=== PATIENT | female | born 1985 | race Caucasian/White ===

== ENCOUNTER 2025-04-16 13:00 | Outpatient (AMB) | payer MEDICAID, SELFPAY ==
[2025-04-16 14:09] VITALS: BMI 35.4
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
== END 2025-04-16 15:21 | disposition home or self-care (01) ==
LOC: HO.HNS 13:01
PROVIDERS: PCP Family Medicine; Visit Provider Neurological Surgery
DX: M46.1 Sacroiliitis, not elsewhere classified (principal)
CPT/HCPCS: 99204

== ENCOUNTER → 2025-04-16 13:00 | Outpatient (BNVA) | payer MEDICAID, SELFPAY | PROVIDERS: PCP Family Medicine; Visit Provider Neurological Surgery | DX: M46.1 Sacroiliitis, not elsewhere classified (principal); I10 Essential (primary) hypertension | CPT/HCPCS: 99202 ==

== ENCOUNTER 2025-05-15 08:49 | Day surgery (SDC) | payer MEDICAID, SELFPAY ==
[2025-05-12 15:31] VITALS: BMI 35.4
[2025-05-13 09:37] VITALS: BMI 35.4
--- NOTE | 2025-05-13 14:59 | HO.ANESPROP2 ---
Documented by User: Luba Mijares NP 05/13/25 14:59 HPI - Anesthesia Eval Consult details Narrative: 39yo F for Left Sacroiliac Joint Fusion PMFSH Active Problems Active Problems: All Active Problems Sacroiliitis, not elsewhere classified (Acute) Past Medical History Medical History Nail abnormalities Seasonal allergies Cervical dysplasia Atrophic kidney Chronic kidney infection Heartburn Meningitis Depression ADHD (attention deficit hyperactivity disorder) HTN (hypertension) Septic arthritis Surgical History Surgical History Hx of section Hx of lithotripsy Hx of bilateral salpingectomy History of loop electrical excision procedure (LEEP) Social History Social History Household Members: Spouse Are you a primary memory care program director to a significant other at home: No Do you presently have visiting nurse or other home services: No Patient Tobacco Use Status: Current everyday Tobacco user Tobacco use type: Cigarette Cigarettes Per Day: 4 Years Smoked: 19 Second Hand Smoke Exposure: No Use of substances other than those prescribed or required for medical reasons: No Have you been hit, kicked, punched, or otherwise hurt by someone within the past year? If so, by whom?: No Spiritual Healthcare Practices: no Episcopal Healthcare Practices: no Cultural Healthcare Practices: no Are you DNR?: No Advance Directives: No (states is HCP) Advance Directives Information Provided: No (as above noted) Advance Directives on File: No Patient : No FDLMP: 04/19/25 : No Poor oral hygiene: No Meds Allergies Allergy/AdvReac Type Severity Reaction Status Date / Time Latex, Natural Rubber Allergy Intermediate Rash Verified 05/13/25 09:10 Seasonal Allergies Allergy Intermediate chest Verified 05/13/25 09:34 congestion Home Medications ?Medication ?Instructions ?Recorded ?Confirmed ?Last Taken ?Type gabapentin 300 mg capsule 300 mg PO BID PRN Pain 04/16/25 05/13/25 Unknown History hydrochlorothiazide 25 mg tablet 25 mg PO DAILY 04/16/25 05/13/25 Unknown History lisinopril 20 mg tablet 20 mg PO DAILY 04/16/25 05/13/25 Unknown History trazodone 50 mg tablet 50 mg PO BEDTIME 04/16/25 05/13/25 Unknown History dextroamphetamine-amphetamine ER 1 cap PO QAM 05/12/25 05/13/25 Unknown History 15 mg 24hr capsule,extend release (Adderall XR) famotidine 20 mg tablet 20 mg PO BID PRN Heartburn 05/12/25 05/13/25 Unknown History albuterol sulfate 90 mcg/actuation 2 puff inhalation Q4-6H PRN 05/13/25 05/13/25 Unknown History aerosol inhaler (Ventolin HFA) Allergy Symptoms budesonide-formoterol HFA 160 2 puff inhalation Q12H PRN Allergy 05/13/25 05/13/25 Unknown History mcg-4.5 mcg/actuation aerosol Symptoms inhaler (Symbicort) cetirizine 10 mg tablet 10 mg PO DAILY 05/13/25 05/13/25 Unknown History propranolol 20 mg tablet 20 mg PO BID PRN Anxiety 05/13/25 05/13/25 Unknown History Exam Height,Weight and Vital Signs: Height 5 ft 4 in Weight 93.44 kg Assessment and Plan Assessment Anesthesia Assessment: Chart Reviewed Documented by User: Justin Bui MD 05/15/25 09:46 [facility] Past Medical History Medical History Nail abnormalities Seasonal allergies Cervical dysplasia Atrophic kidney Chronic kidney infection Heartburn Meningitis Depression ADHD (attention deficit hyperactivity disorder) HTN (hypertension) Septic arthritis Cognitive capacity: normal Functional capacity: independent ambulation Family History Family history of problems with anesthesia: No Surgical History Surgical History Hx of section Hx of lithotripsy Hx of bilateral salpingectomy History of loop electrical excision procedure (LEEP) History of Problems with Anesthesia: No Social History Social History Household Members: Spouse Are you a primary memory care program director to a significant other at home: No Do you presently have visiting nurse or other home services: No Patient Tobacco Use Status: Current everyday Tobacco user Tobacco use type: Cigarette Cigarettes Per Day: 4 Years Smoked: 19 Second Hand Smoke Exposure: No Use of substances other than those prescribed or required for medical reasons: No Have you been hit, kicked, punched, or otherwise hurt by someone within the past year? If so, by whom?: No Spiritual Healthcare Practices: no Episcopal Healthcare Practices: no Cultural Healthcare Practices: no Are you DNR?: No Advance Directives: No (states is HCP) Advance Directives Information Provided: No (as above noted) Advance Directives on File: No Patient : No FDLMP: 04/19/25 : No Poor oral hygiene: No Meds Allergies Allergy/AdvReac Type Severity Reaction Status Date / Time Latex, Natural Rubber Allergy Intermediate Rash Verified 05/13/25 09:10 Seasonal Allergies Allergy Intermediate chest Verified 05/13/25 09:34 congestion Home Medications ?Medication ?Instructions ?Recorded ?Confirmed ?Last Taken ?Type gabapentin 300 mg capsule 300 mg PO BID PRN Pain 04/16/25 05/13/25 Unknown History hydrochlorothiazide 25 mg tablet 25 mg PO DAILY 04/16/25 05/13/25 Unknown History lisinopril 20 mg tablet 20 mg PO DAILY 04/16/25 05/13/25 Unknown History trazodone 50 mg tablet 50 mg PO BEDTIME 04/16/25 05/13/25 Unknown History dextroamphetamine-amphetamine ER 1 cap PO QAM 05/12/25 05/13/25 Unknown History 15 mg 24hr capsule,extend release (Adderall XR) famotidine 20 mg tablet 20 mg PO BID PRN Heartburn 05/12/25 05/13/25 Unknown History albuterol sulfate 90 mcg/actuation 2 puff inhalation Q4-6H PRN 05/13/25 05/13/25 Unknown History aerosol inhaler (Ventolin HFA) Allergy Symptoms budesonide-formoterol HFA 160 2 puff inhalation Q12H PRN Allergy 05/13/25 05/13/25 Unknown History mcg-4.5 mcg/actuation aerosol Symptoms inhaler (Symbicort) cetirizine 10 mg tablet 10 mg PO DAILY 05/13/25 05/13/25 Unknown History propranolol 20 mg tablet 20 mg PO BID PRN Anxiety 05/13/25 05/13/25 Unknown History Exam Exam Date and Time: 05/13/2025 Airway Mallampati Class: II Loose/Missing/Broken Teeth: No Heart: rrr Lungs: cta Other: normal Assessment and Plan Final Anesthetic Review Family History of Problems with Anesthesia: No History of Problems with Anesthesia: No NPO: Yes ASA Class: II Final Preanesthetic Review: No Changes in Pt Med Stat, Meds/Allgs Chart Reviewed, Consent Obtained/Reviewed and Anes Risks/Benef Reviewed Patient Risk: Low Procedure Risk: Low Anesthetic Plan Anesthetic Plan: GA Disposition: Standard PACU
[2025-05-15] VITALS (10 sets, daily range): BP systolic 117–151; BP diastolic 56–87; PULSE 66–95; RESP 12–22; TEMP 36.5–37.1; O2SAT 97–100
--- NOTE | ~2025-05-15 | FL_ITS ---
EXAMINATION: XR FLUOROSCOPY WITH IMAGES CLINICAL INFORMATION: Left SI joint fusion COMPARISON: None available. TECHNIQUE: Fluoroscopy provided to: Dr. Stevens Fluoroscopy time: 45 seconds DAP: 14.626 Gycm2 Images: 2 FINDINGS: 2 fluoroscopic spot images obtained during left SI joint fusion. Please refer to the full operative report for details. FL/FL guidance in OR IMPRESSION: Fluoroscopic guidance. Electronically signed by: Edwin Way MD 05/15/2025 12:10 PM EDT
--- NOTE | 2025-05-15 07:04 | MHC.SHP ---
Pre-Procedural Eval Section A - 24 Hr Update-Section A only Date of Service: 05/15/25 Section B - Complete if H&P > 30 days Chief Complaint: Sacroiliitis, not elsewhere classified Allergies: Allergies Allergy/AdvReac Type Severity Reaction Status Date / Time Latex, Natural Rubber Allergy Intermediate Rash Verified 05/13/25 09:10 Seasonal Allergies Allergy Intermediate chest Verified 05/13/25 09:34 congestion Review of Systems Sugical H&P ROS: Negative: Constitution, Cardiovascular, Respiratory, Neurological, Psychiatric, Hem-Onc, Allergic/Immunologic, Gastrointestinal, Genitourinary, Musculoskeletal, Integumentary, Endocrine and Eyes/Ears/Nose/Throat Exam Surgical H&P Exam: Not Evaluated: HEENT, Not Evaluated: Heart, Not Evaluated: Lungs, Not Evaluated: Extremities, Not Evaluated: Abdomen, Not Evaluated: Skin and Not Evaluated: Neurological Exam Comment: The patient is awake, alert, no acute distress. Proposed surgical incision site is clean, dry, with no signs of recent trauma. Plan Diagnosis/Plan: Unchanged I have reviewed the history and physical and performed a pertinent physical examination on my patient. No changes have occurred unless specified. Plan remains the same, left SI joint fusion. Time Spent With Patient Time: Total time managing care of this patient today _8___ minutes.
[2025-05-15] MEDS: Lactated Ringers 1,000 ML 100 ML IVCONT (09:29)
--- NOTE | 2025-05-15 11:48 | P.DS_ITS ---
DS: Providers Provider Date of Service: 05/15/25 Date of discharge: 05/15/25 Primary care physician: Ewelina Nettles MD DS: Summary Time Attestation Discharge Coordination Time (in mins): 12 Quality: Safe Use of Opioids Does Pt have an Active Cancer Diagnosis on the Problem List?: No Quality: Stroke Does the patient have a stroke diagnosis?: No Physical Exam Vital Signs: Vital Signs: Last Vital Signs Temp 97.8 F 05/15/25 09:17 Pulse 82 05/15/25 09:17 Resp 14 05/15/25 09:17 BP 141/87 H 05/15/25 09:17 Pulse Ox 100 05/15/25 09:17 O2 Del Method Room Air 05/15/25 09:17 BMI result Body Mass Index 35.4 Discharge Plan Discharge Patient Disposition: Home, Self-Care Referrals: Ewelina Nettles MD [Primary Care Provider, [facility]] - 1 Week Discharge Medications: New oxycodone 5 mg tablet 5 mg PO Q6H PRN (Reason: pain) Qty: 20 0RF Rx Instructions: Partial Fill upon patient request. Continued famotidine 20 mg tablet 20 mg PO BID PRN (Reason: Heartburn) dextroamphetamine-amphetamine [Adderall XR] 15 mg capsule,extended release 24hr 1 cap PO QAM cetirizine 10 mg tablet 10 mg PO DAILY albuterol sulfate [Ventolin HFA] 90 mcg/actuation Hfa Aerosol Inhaler 2 puff INHALATION Q4-6H PRN (Reason: Allergy Symptoms) propranolol 20 mg tablet 20 mg PO BID PRN (Reason: Anxiety) budesonide-formoterol [Symbicort] 160-4.5 mcg/actuation Hfa Aerosol Inhaler 2 puff INHALATION Q12H PRN (Reason: Allergy Symptoms) trazodone 50 mg tablet 50 mg PO BEDTIME lisinopril 20 mg tablet 20 mg PO DAILY gabapentin 300 mg capsule 300 mg PO BID PRN (Reason: Pain) hydrochlorothiazide 25 mg tablet 25 mg PO DAILY Discharge Orders: Discharge Order (Routine); Ordered 05/15/25 Ordered By: Ko Naik Diet: Advance to usual diet Activity on Discharge: As tolerated Activity Restrictions/Additional Instructions: After your SI joint fusion surgery we ask you to observe the following restrictions/guidelines: Activity: It is normal to feel some discomfort as you increase your activity, but that will improve with time. We ask you avoid heavy lifting or acitivities that cause pain. As a general rule, 8lbs is a safe limit for lifting right after surgery. We ask you to stay off your left leg after surgery in order to help the SI joint fuse. Please use crutches or walker. You may return to driving when you are off narcotics (such as vicodin, oxycodone, dilaudid, etc), and you are back to normal functional capacity. If you have any concerns please check with office before driving. Return to work is specific to each patient and each surgery, so please speak with your doctor/PA at first follow up. Please bring paperwork such as FMLA at that time if you need it filled out. Follow up: Please call the office, , after surgery to arrange a 3 week follow up for wound check. Wound Care: Your wound was closed with glue, there are no sutures to remove. You may shower on post op day # 1. We ask that you do not let the water soak the wound. If it does get wet, just towel dry lightly. Please do not scrub your incision or place any type of chemical/ointment on the wound. No tub baths, pools or jacuzzis for one month. If you have any leaking or redness from your wound, or fevers, please call office Medications: We will give you a short supply of narcotics after surgery (usually one weeks worth). If you need more please call the office but do not use more than prescribed. You will need to give our office 48 hours notice if you need narcotics refilled and we do not fill narcotics on weekends or evenings. If you are on a narcotic, it is a good idea to take a stool softener such as colace or senna to avoid constipation If you take blood thinner such as aspirin, Plavix, Coumadin, Effient, Eliquis etc for conditions such as Afib, DVT, Pulmonary embolus, coronary disease, stents etc please speak with your surgeon about specific details as to when you can resume these medications. You can resume NSAIDs on post op day 1 (eg: Motrin, Naproxen, etc). Print Language: Icelandic
--- NOTE | 2025-05-15 11:57 | P.OP_ITS ---
Operative Note Operative Note Date of Service: 05/15/25 Narrative: Preoperative diagnosis: Left Sacroiliitis Postoperative diagnosis: Same Operative procedure: Left sacroiliac joint fusion with 1 allograft implant Surgeon: Erick Stevens MD, PhD Shellfish Dredge Operator: KEAGAN Michael Anesthesia: General Description of procedure: The patient is suffering from left SI joint sacroiliitis refractory to nonoperative management. The patient has tried and failed all forms of conservative manage med except for an excellent short-term response to a sacroiliac joint injection. The sacroiliac joint was confirmed to be the pain generator after repeated pain blocks. The patient was offered surgical treatment with fixation and arthrodesis of the SI joint. The patient was brought to the operating room and endotracheally intubated. The patient was turned in a prone position on [place] spine table. Prepping and draping was done followed by a time-out. A C-arm was alternately positioned for lateral, oblique oblique and pelvic inlet and outlet projections througout the procedure. Skin markings were made for the anticipated position of the implant. A 2.5 cm longitudinal skin incision was made. A guide pin was inserted in an outlet oblique image for guidance follow-up insertion of dilator and working cannula. This was secured by placing an anchor pin into the ilium. Consideration was taken to cut channels utilizing a series of drills for decortication and internal fixation device placement. The implant was inserted such that it passed through the ilium, across the sacroiliac joint and into the sacrum, thus transfixing the sacroiliac joint. Proper positioning was confirmed on lateral fluoroscopy. The implant was packed with autologous bone collected from remain of the sacrum and ilium. Additional graft material was inserted into the channel void following the implant. The instruments were withdrawn. Upon completion, final images were obtained that showed a satisfactory position of the implant. Hemostasis was done. The incision was closed with an 0 Vicryl to fashion a 3-0 Vicryl subdermal layer after injecting Marcaine. Dermabond was used to approximate the surgeon. All sponge and needle counts were correct. Patient was extubated and transported in a stable condition to recovery room. Estimated blood loss: 40 Surgical time: 35 minutes Complications: None Disposition: Discharge to home
[2025-05-15] MEDS: oxyCODONE HCl Immed Release 5 MG TABLET PO (13:02)
== END 2025-05-15 13:48 | disposition home or self-care (01) ==
PROVIDERS: PCP Family Medicine; Visit Provider Neurological Surgery
PROC: (CPT 27279; principal; 2025-05-15 10:30)
DX: M46.1 Sacroiliitis, not elsewhere classified (principal); R26.2 Difficulty in walking, not elsewhere classified; I10 Essential (primary) hypertension; F90.9 Attention-deficit hyperactivity disorder, unspecified type; Z79.1 Long term (current) use of non-steroidal anti-inflammatories (NSAID); Z79.899 Other long term (current) drug therapy; Z91.040 Latex allergy status; F17.210 Nicotine dependence, cigarettes, uncomplicated
CPT/HCPCS: 27279; C1713; J0131; J0690; J1100; J1171; J1885; J2003; J2405; J2704; J3010; L8699

== ENCOUNTER → 2025-05-15 08:49 | Outpatient (BNV) | payer MEDICAID, SELFPAY | PROVIDERS: PCP Family Medicine; Visit Provider Physician Assistant | DX: M46.1 Sacroiliitis, not elsewhere classified (principal) | CPT/HCPCS: 27279; 99499 ==

== ENCOUNTER 2025-06-05 14:10 | Outpatient (AMB) | payer MEDICAID, SELFPAY ==
--- NOTE | 2025-06-05 14:18 | HO.SPINEOV ---
Intake Visit Reasons: 1st post op Intake Note: Ms. Grace is here today for her 1st post op. Advanced Manager Required: No Allergies Latex, Natural Rubber Allergy (Intermediate, Verified 05/13/25 09:10) Rash Seasonal Allergies Allergy (Intermediate, Verified 05/13/25 09:34) chest congestion Assessment & Plan Assessment & Plan (1) Sacroiliitis, not elsewhere classified: Code(s): M46.1 - Sacroiliitis, not elsewhere classified Category: Medical Plan Mrs Grace is 3 weeks out from her left SI joint fusion. The pain that she has presenting with before surgery is better, she is dealing with a postop surgical pain which seems to be getting better slowly. She is just taking [id number] medications with this. The her incision is healed up nicely. I told her at this point she can start walking in mobilizing more. I still do not want her doing heavy lifting but she can resume most activities. I will see her back in 6 weeks with a set of x-rays. Brown Stevens MD, PhD [facility] Orders: Orders XR sacroiliac joint min 3V Today M46.1 - Sacroiliitis, not elsewhere classified Coding Level of Care Code Global (74399) Diagnoses Sacroiliitis, not elsewhere classified M46.1
--- OUTSIDE RECORDS SUMMARY | 2025-06-05 14:55 | XMS_ITS | Encounter Summary ---
Author Organization [facility] Address [address] [place] [phone] Phone Care Team Providers Care Pastoral Ministries Professor Name Role Phone Ewelina Nettles MD Primary Care Provider [phone] Florence Ricks RIPPLER Unavailable [email or web address] Veena Wilson RN Unavailable Encounter Details Date Type Department Care Team (Late st Contact Info) Description 08/09/2024 Procedure Pass [facility] Endoscopy Admitting Dept Virtual Department [address] [place] [address] Social History Tobacco Use Types Packs/Day Years Used Date Smoking Tobacco: Every Day Cigarettes 0.5 19.7 Started: 10/09/2005 Passive Smoke Exposure: Current Smokeless Tobacco: Never Comments:Pt reports she is t rying to quit and is currently using the patch. Pt reports no hx of smokeless use. Alcohol Use Standard Drinks/Week Comments Never 0 (1 standard drink = 0.6 oz pure alcohol) Pt reports drinks a sip of alcohol once a year during holiday event. Education Answer Date Recorded Are you interested in more education? Not on marilyn e 02/03/2023 Are you concerned about learning? Not on file 02/03/2023 No 02/03/2023 No 02/03/2023 Digital Access Answer Date Recorded No 03/03/2023 No 03/03/2023 Reliable internet access at home? Not on file 03/03/2023 Device with a working camera? Not on file Intimate Partner Violence Answer Date R ecorded Are you denied basic needs s uch as food, clothing, or medical care? No 08/09/2024 In the past 12 months have y ou been in a relationship with a person who hurts, threatens, or tries to control you? No 08/09/2024 Are you denied basic needs s uch as food, clothing, or medical care? No 08/09/2024 In the past 12 months have y ou been in a relationship with a person who hurts, threatens, or tries to control you? No 08/09/2024 Education Answer Date Recorded What is the highest level of school you have completed or the highest degree you have received? Some college, no degree 11/01/2023 Comments No Sex and Gender Information Value Date Recorded Sex Assigned at Female 11/26/2020 6:11 PM EST Legal Sex Female 9:10 PM EDT Gender Identity Female 11/26/2020 6:11 PM EST Sexual Orientation Not on file Occupation Industry Job Start Date Job End Date not employed Not on file Not on file Not on file documented as of this encounter Plan of Treatment Not on file documented as of this encounter Visit Diagnoses Not on filedocumented in this encounter Additional Health Concerns Assessment Noted Time PHQ-9 Depression Total Score: 21 024 9:04 AM EST PHQ-2 Depression Total Score: 5 11/10/19 24 9:04 AM EST documented as of this encounter Care Teams [employer] Minist[employer] Professor Relationship Specialty Start Date End Date Ewelina Nettles MD [address] [place] [phone] [email or web address] PCP - General Family Medicine 11/26/20 Florence Ricks LCSW [address] [place] [id number] [employer] Social Work 10/24/23 Veena Wilson, RN [address] [place] [id number] [employer] Electronic Warfare Officer 12/02/24 02/09/25 documented as of this encounter Additional Source Comments The information contained in this document represents components of the legal health record. It is not the complete legal health record.[facility]
--- OUTSIDE RECORDS SUMMARY | 2025-06-05 14:55 | XMS_ITS | Encounter Summary ---
Author Organization [facility] Address [address] [place] [phone] Phone Care Team Providers Care Web Coordinator Name Role Phone Ewelina Nettles MD Primary Care Provider Ewelina Nettles MD Unavailable [phone] Florence RicksW Unavailable [email or web address] Stepan Reno Unavailable [email or web address] Mai Zuniga Unavailable claudia Veena Wilson RN Unavailable Encounter Details Date Type Department Care Team (Late st Contact Info) Description 06/15/2021 Telephone [facility] Emergency Radiology, [address], Floor 1 [place] [address] Ewelina Nettles MD [address] [place] [address] [email or web address] Social History Tobacco Use Types Packs/Day Years Used Date Smoking Tobacco: Some Days Smokeless Tobacco: Never Alcohol Use Standard Drinks/Week Comments Not Currently 0 (1 standard drink = 0.6 oz pur e alcohol) Comments No Sex and Gender Information Value Date Recorded Sex Assigned at Female 11/26/2020 6:11 PM EST Legal Sex Female 9:10 PM EDT Gender Identity Female 11/26/2020 6:11 PM EST Sexual Orientation Not on file documented as of this encounter Plan of Treatment Not on file documented as of this encounter Visit Diagnoses Not on filedocumented in this encounter Care Teams Web Coordinator Relationship Specialty Start Date End Date Ewelina Nettles MD [address] [place] [phone] [email or web address] PCP - General Family Medicine 11/26/20 Ewelina Nettles MD [address] [place] [address] [email or web address] Insurance Assigned Provider 01/16/21 06/17/23 Florence Ricks LCSW [address] [place] [address] [email or web address] [facility] Social Work 10/24/23 Stepan Reno [address] [place] [address] [email or web address] Community Health Worker 02/15/24 05/20/24 Mai Zuniga [address] [place] [address] [email or web address] [facility] Community Product Development Chemist 04/05/24 04/05/24 Veena Wilson RN [address] [place] [address] [email or web address] [facility] Mechanical Maintenance 12/02/24 02/09/25 documented as of this encounter Additional Source Comments The information contained in this document represents components of the legal health record. It is not the complete legal health record.[facility]
--- OUTSIDE RECORDS SUMMARY | 2025-06-05 14:55 | XMS_ITS | Encounter Summary ---
Author Organization [facility] Address [address] [place] [address] Phone Care Team Providers Care Kit Assembler Name Role Phone Ewelina Nettles MD Primary Care Provider [phone] Veena Wilson RN Unavailable Geovani Fermin MD Unavailable [phone] Ewelina Nettles MD Unavailable [phone] Florence RicksW Unavailable [email or web address] Stepan Reno Unavailable [email or web address] Mai Zuniga Unavailable claudia Veena Wilson RN Unavailable Encounter Details Date Type Department Care Team (Late st Contact Info) Description 12/01/2020 Procedure Pass [facility], Ct Scan - [address] [address] Social History Tobacco Use Types Packs/Day Years [...] on filedocumented in this encounter Care Teams Kit Assembler Relationship Specialty Start Date End Date Ewelina Nettles MD [address] [place] [address] [email or web address] PCP - General Family Medicine 11/26/20 Veena Wilson, RN [address] [place] [phone] [facility] Anthropology Lecturer 12/09/20 12/15/20 Geovani Fermin MD [address] [place] [phone] Insurance Assigned Provider 12/12/20 01/16/21 Ewelina Nettles MD [address] [place] [address] [email or web address] Insurance Assigned Provider 01/16/21 06/17/23 Florence Ricks LCSW [address] [place] [phone] [email or web address] [facility] Social Work 10/24/23 Stepan Reno [address] [place] [phone] [email or web address] [facility] Community Health Worker 02/15/24 05/20/24 Mai Zungia [address] [place] [address] [email or web address] [facility] Community Retail Banker 04/05/24 04/05/24 Veena Wilson, ENRIQUE [address] [place] [phone] [facility] Anthropology Lecturer 12/02/24 02/09/25 documented as of this encounter Additional Source Comments The information contained in this document represents components of the legal health record. It is not the complete legal health record.[facility]
--- OUTSIDE RECORDS SUMMARY | 2025-06-05 14:55 | XMS_ITS | Encounter Summary ---
Author Organization [facility] Address [address] [place] [address] Phone Care Team Providers Care Reclamation Furnace Operator Name Role Phone Ewelina Nettles MD Primary Care Provider [phone] Veena Wilson RN Unavailable Geovani Fermin MD Unavailable [phone] Ewelina Nettles MD Unavailable [phone] Florence RicksW Unavailable ndelabar Stepan Reno Unavailable Mai Zuniga Unavailable claudia Veena Wilson RN Unavailable Encounter Details Date Type Department Care Team (Late st Contact Info) Description 11/30/2020 Procedure Pass [facility] Cardiovascular And Interventional Radiology [address] [place] [address] Social History Tobacco Use Types Packs/Day Years [...] on filedocumented in this encounter Care Teams Reclamation Furnace Operator Relationship Specialty Start Date End Date Ewelina Nettles MD [address] [place] [address] [email or web address] PCP - General Family Medicine 11/26/20 Veena Wilson, RN [address] [place] [address] [facility] Semiconductor Wafers Etch Operator 12/09/20 12/15/20 Geovani Fermin MD [address] [place] [address] Insurance Assigned Provider 12/12/20 01/16/21 Ewelina Nettles MD [address] [place] [address] Insurance Assigned Provider 01/16/21 06/17/23 Florence Ricks LCSW [address] [place] [address] [email or web address] [facility] Social Work 10/24/23 Stepan Reno [address] [place] [address] [email or web address] [facility] Community Health Worker 02/15/24 05/20/24 Mai Zuniga [address] [place] [phone] [email or web address] [facility] Community Real Estate Underwriter 04/05/24 04/05/24 Veena Wilson, ENRIQUE [address] [place] [address] [facility] [employer]iconductor Wafers Etch Operator 12/02/24 02/09/25 documented as of this encounter Additional Source Comments The information contained in this document represents components of the legal health record. It is not the complete legal health record.[facility]
--- OUTSIDE RECORDS SUMMARY | 2025-06-05 14:55 | XMS_ITS | Encounter Summary ---
Author Organization [facility] Address [address] [place] [address] Phone Care Team Providers Care Tone Regulator Name Role Phone Ewelina Nettles MD Primary Care Provider [phone] Veena Wilson RN Unavailable Geovani Fermin MD Unavailable [phone] Ewelina Nettles MD Unavailable [phone] Florence RicksW Unavailable ndelabar Stepan Reno Unavailable Mai Zuniga Unavailable claudia Veena Wilson RN Unavailable Encounter Details Date Type Department Care Team (Late st Contact Info) Description 11/27/2020 Procedure Pass [facility], [address] [address] Social History Tobacco Use Types Packs/Day Years Used Date Smoking Tobacco: Never Assessed Alcohol Use Standard Drinks/Week Comments Not Currently 0 (1 standard drink = 0.6 oz pur e alcohol) Comments Unknown Sex and Gender Information Value Date Recorded Sex Assigned at Female 11/26/2020 6:11 PM EST Legal Sex Female 9:10 PM EDT Gender Identity Female 11/26/2020 6:11 PM EST Sexual Orientation Not on file documented as of this encounter Functional Status * Calculated C-SSRS Risk Score (Lifetime/Recent) Answer Date of Assessment Author No Risk Indicated 11/28/2020 6:29 PM Kerri Irby RN * [place] Suicide Severity Rating Scale (Screener/Recent Self-Report) Question Answer Date of Assessment Author 1. Wish to be (Past 1 Month) No 021 6:29 PM Kerri Irby RN 2. Non-Specific Active Suici viki Thoughts (Past 1 Month) No 11/28/2020 6:29 PM Kerri Irby RN 6. Suicidal Behavior (Lifetime) No 6:29 PM Kerri Irby RN documented as of this encounter Plan of Treatment Not on file documented as of this encounter Visit Diagnoses Not on filedocumented in this encounter Care Teams Tone Regulator Relationship Specialty Start Date End Date Ewelina Nettles MD [address] [place] [phone] [email or web address] PCP - General Family Medicine 11/26/20 Veena Wilson RN [address] [place] [phone] [facility] Railroad Auditor 12/09/20 12/15/20 Geovani Fermin MD [address] [place] [phone] Insurance Assigned Provider 12/12/20 01/16/21 Ewelina Nettles MD [address] [place] [phone] Insurance Assigned Provider 01/16/21 06/17/23 Florence Ricks LCSW [address] [place] [address] [facility] Social Work 10/24/23 Stepan Reno [address] [place] [address] [email or web address] [facility] Community Health Worker 02/15/24 05/20/24 Mai Zuniga [address] [place] [address] [email or web address] [facility] Community Medicare Specialist 04/05/24 04/05/24 Veena Wilson RN [address] [place] [address] [employer] Railroad Auditor 12/02/24 02/09/25 documented as of this encounter Additional Source Comments The information contained in this document represents components of the legal health record. It is not the complete legal health record.[facility]
--- OUTSIDE RECORDS SUMMARY | 2025-06-05 14:55 | XMS_ITS | Encounter Summary ---
Author Organization [facility] Address [address] [place] [address] Phone Care Team Providers Care Umbrella Cutter Name Role Phone Ewelina Nettles MD Primary Care Provider [phone] Veena Wilson RN Unavailable Geovani Fermin MD Unavailable [phone] Ewelina Nettles MD Unavailable [phone] Florence RicksW Unavailable ndelabar Stepan Reno Unavailable [email or web address] Mai Zuniga Unavailable claudia Veena Wilson RN Unavailable Encounter Details Date Type Department Care Team (Late st Contact Info) Description 12/01/2020 Procedure Pass [facility] Cardiovascular And Interventional Radiology [address] [place] [address] Social History Tobacco Use Types Packs/Day Years [...] on filedocumented in this encounter Care Teams Umbrella Cutter Relationship Specialty Start Date End Date Ewelina Nettles MD [address] [place] [address] [email or web address] PCP - General Family Medicine 11/26/20 Veena Wilson, RN [address] [place] [phone] [facility] Cart Pusher 12/09/20 12/15/20 Geovani Fermin MD [address] [place] [phone] Insurance Assigned Provider 12/12/20 01/16/21 Ewelina Nettles MD [address] [place] [phone] Insurance Assigned Provider 01/16/21 06/17/23 Florence Ricks LCSW [address] [place] [address] [email or web address] [facility] Social Work 10/24/23 Stepan Reno [address] [place] [address] [email or web address] [facility] Community Health Worker 02/15/24 05/20/24 Mai Zuniga [address] [place] [address] [email or web address] [facility] Community Assistant Media Planner 04/05/24 04/05/24 Veena Wilson, ENRIQUE [address] [place] [address] [facility] Cart Pusher 12/02/24 02/09/25 documented as of this encounter Additional Source Comments The information contained in this document represents components of the legal health record. It is not the complete legal health record.[facility]
--- OUTSIDE RECORDS SUMMARY | 2025-06-05 14:55 | XMS_ITS | Encounter Summary ---
Author Organization [facility] Address [address] [place] [address] Phone Care Team Providers Care Director Radio News Name Role Phone Ewelina Nettles MD Primary Care Provider [phone] Veena Wilson RN Unavailable Geovani Fermin MD Unavailable [phone] Ewelina Nettles MD Unavailable [phone] Florence RicksW Unavailable ndelabar Stepan Reno Unavailable [email or web address] Mai Zuniga Unavailable claudia Veena Wilson RN Unavailable Encounter Details Date Type Department Care Team (Late st Contact Info) Description 11/28/2020 Procedure Pass [facility], [address] [address] Social History Tobacco Use Types Packs/Day Years [...] 11/28/2020 6:29 PM Kerri Irby RN * [place] Suicide Severity Rating Scale (Screener/Recent Self-Report) Question [...] on filedocumented in this encounter Care Teams Director Radio News Relationship Specialty Start Date End Date Ewelina Nettles MD [address] [place] [phone] [email or web address] PCP - General Family Medicine 11/26/20 Veena Wilson RN [address] [place] [phone] [facility] Ladle Builder 12/09/20 12/15/20 Geovani Fermin MD [address] [place] [phone] Insurance Assigned Provider 12/12/20 01/16/21 Ewelina Nettles MD [address] [place] [phone] Insurance Assigned Provider 01/16/21 06/17/23 Florence Ricks LCSW [address] [place] [phone] [facility] Social Work 10/24/23 Stepan Reno [address] [place] [phone] [email or web address] .[email or web address] Community Health Worker 02/15/24 05/20/24 Mai Zuniga [address] [place] [address] [email or web address] [facility] Community Box Printer 04/05/24 04/05/24 Veena Wilson RN [address] [place] [address] [email or web address] [facility] Ladle Builder 12/02/24 02/09/25 documented as of this encounter Additional Source Comments The information contained in this document represents components of the legal health record. It is not the complete legal health record.[facility]
--- OUTSIDE RECORDS SUMMARY | 2025-06-05 14:55 | XMS_ITS | Encounter Summary ---
Author Organization [facility] Address [address] [place] [address] Phone Care Team Providers Care Lean Manager Name Role Phone Ewelina Nettles MD Primary Care Provider [phone] Veena Wilson RN Unavailable Geovani Fermin MD Unavailable [phone] Ewelina Nettles MD Unavailable [phone] Florence RicksW Unavailable ndelabar Stepan Reno Unavailable [email or web address] Mai Zuniga Unavailable claudia Veena Wilson RN Unavailable Encounter Details Date Type Department Care Team (Late st Contact Info) Description 11/28/2020 Procedure Pass [facility], Ct Scan - [address] [address] Social History Tobacco Use Types Packs/Day Years [...] 11/28/2020 6:29 PM Kerri Irby RN * [place] Suicide Severity Rating Scale (Screener/Recent Self-Report) Question Answer Date of Assessment Author 1. Wish to be (Past 1 Month) No 021 6:29 PM Kerri Irby, ENRIQUE 2. Non-Specific Active Suici viki Thoughts (Past 1 Month) No 11/28/2020 6:29 PM Kerri Irby RN 6. Suicidal Behavior (Lifetime) No 6:29 PM Kerri Irby RN documented as of this encounter Plan of Treatment Not on file documented as of this encounter Visit Diagnoses Not on filedocumented in this encounter Care Teams Lean Manager Relationship Specialty Start Date End Date Ewelina Nettles MD [address] [place] [phone] PCP - General Family Medicine 11/26/20 Veena Wilson RN [address] [place] [phone] [facility] Worm Picker 12/09/20 12/15/20 Geovani Fermin MD [address] [place] [phone] Insurance Assigned Provider 12/12/20 01/16/21 Ewelina Nettles MD [address] [place] [phone] Insurance Assigned Provider 01/16/21 06/17/23 Florence Ricks LCSW [address] [place] [phone] [facility] Social Work 10/24/23 Stepan Reno [address] [place] [phone] [email or web address] [employer] Community Health Worker 02/15/24 05/20/24 Mai Zuniga [address] [place] [address] [email or web address] [facility] Community Makeup Editor 04/05/24 04/05/24 Veena Wilson RN [address] [place] [phone] [facility] Worm Picker 12/02/24 02/09/25 documented as of this encounter Additional Source Comments The information contained in this document represents components of the legal health record. It is not the complete legal health record.[facility]
--- OUTSIDE RECORDS SUMMARY | 2025-06-05 14:55 | XMS_ITS | Clinical Summary ---
Author Organization [facility] Address [address] [place] [address] Phone Care Team Providers Care River Driver Name Role Phone Ewelina Nettles MD Primary Care Provider Florence Ricks COMPUTER FORENSICS EXAMINER Unavailable [email or web address] Allergies Active Allergy Reactions Criticality Noted Date Comments Latex 11/26/2020 Medications ibuprofen (ADVIL,MOTRIN) 600 MG tablet Take 1 tablet (600 mg total) by mouth every 6 (six) hours as needed for pain (specific location in comments). 16 tablet 1 Active dextroamphetami ne-amphetamine (ADDERALL) 10 mg Tab tablet Take 10 mg by mouth every morning. Active metoclopramide HCl (REGLAN) 10 MG tablet Take 15 mg by mouth 3 (three) times a day. Active acetaminophen (TYLENOL) 325 mg tablet Take 2 tablets (650 mg total) by mouth every 6 (six) hours as needed for mild pain or fever. 30 tablet 1 Active senna (SENOKOT) 8.6 mg tablet Take 1 tablet by mouth 2 (two) times a day. 60 tablet 1 Active polyethylene glycol (MIRALAX) 17 gram packet Take 17 g by mouth daily. 30 packet 1 Active tamsulosin (FLOMAX) 0.4 mg CapIndications: Atrophic kidney,Pyelonep hritis,Bladder outlet obstruction,Acu te urinary retention Take 1 capsule (0.4 mg total) by mouth daily. 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 4 Active lisinopril (PRINIVIL,ZESTR IL) 20 MG tablet Take 20 mg by mouth daily. 4 Active traZODone (DESYREL) 50 MG tablet Take 50 mg by mouth nightly at bedtime. 4 Active Active Problems Patient Care Coordination No te Formatting of this note migh t be different from the original. Patient is high risk for these reasons: Multiple chronic conditions. Living Situation: Independent, lives with partner and four children in [address] 3 bedroom duplex. Functional Status (ADL's/iADLs): Many needs, including laundry, cleaning, and grocery shopping, due to chronic pain, Family/Social Supports: Some supports, including partner, mother, friends, and counselor. Goals of Care (HCP/Molst): None on file; Pt would like to complete HCP. Community Supports (e.g. VNA, DME Vendors, Elder Services): [facility] Transportation: Drives, needs help finding funds for car repairs. Medication Management System/Specialized Pharmacy Needs: Local pharmacy, self- picking tech. Financial Concerns: Experiencing financial hardship. Other Supports and Care Needs: Food, housing, WIC, educational, utilities. Problem Noted Date Diagnosed Date Bladder outlet obstruction 08/17/2021 Atrophic kidney 06/16/2021 Pyelonephritis 06/16/2021 Pyuria 06/16/2021 Yeast vaginitis 12/06/2020 Assessment & Plan (12/06/2020 5:24 PM EST): - diflucan x1 since she does not want topical treatment - will interact with opiates but she has not had significant sedation and will be continued on continuous pulse ox and will hold oxycodone dose if develops sedation E coli bacteremia 11/29/2020 Assessment & Plan (12/07/2020 3:16 PM EST): E. coli bacteremia- ecoli in urine Also appears to have SI septic arthritis, osteomyelitis iliac bone, and pyomyositis -Discussed with Dr. Cleary, good penetration to the bone with Levofloxacin, so will plan for 750mg Levofloxacin daily on discharge, first dose tonight. Anticipating prolonged course, at least 4-6 weeks? Follow-up with Dr. Cleary as an outpatient on December 15. Pyomyositis 11/28/2020 Assessment & Plan (12/07/2020 3:13 PM EST): Of left piriformis muscle, iliacus at the sacroiliac joint - New MRI Sacrum on 12/04 - appears there is osteomyelitis and SI septic arthritis, reviewed with surgery and IR at [facility] on 12/05 - felt IR drainage would be the indicated treatment but collection too small to drain - pain control challenging: Narcotic requirements will be a slow wean likely as an outpatient, attempts made to discuss with PCP today for transfer to OP plan Have discussed that it is not possible to fully reduce the pain she has with movement - she is finding benefit from the current dose of oxycodone Started long acting oxycodone today No sedation, pain is reasonably well controlled, discussing plan for outpatient taper over next few weeks of antibiotic therapy. Continue acetaminophen, gabapentin, lidocaine Tachycardia 11/28/2020 Acute urinary retention 11/28/2020 Assessment & Plan (12/07/2020 3:15 PM EST): Voiding appropriately Encounters Date Type Department Care Team Description 05/12/2025 Patient Outreach [facility] [address] [place] [phone] Florence Ricks LCSW iCMP Care Plan Update 04/22/2025 Patient Outreach [facility] [address] [place] [phone] Florence Ricks LCSW iCMP Care Plan Update 03/24/2025 Patient Outreach [facility] [address] [place] [phone] Florence Ricks LCSW iCMP Care Plan Update 03/21/2025 Patient Outreach [facility] [address] [place] [phone] Florence Ricks LCSW iCMP Care Plan Update 03/14/2025 Patient Outreach [facility] [address] [place] [phone] Florence Ricks, COMPUTER FORENSICS EXAMINER iCMP Care Plan Update from Last 3 Months Immunizations Immunization Administration Dates Next Due COVID-19 (Pre-07/31) Moderna Vaccine, mRNA, PF 0 02/26/2021,01/29/2021 Family History Relation Status Comments Father Mother Alive Sister 1 Alive Sister 2 Alive Social History Tobacco Use Types Packs/Day Years Used Date Smoking Tobacco: Every Day Cigarettes 0.5 19.7 Started: 10/09/2005 Passive Smoke Exposure: Current Smokeless Tobacco: Never Tobacco Cessation:Ready to Q uit: Not Asked; Counseling Given: Not Answered Comments:Pt reports she is trying to quit and is currently using the [...] ecorded Are you denied basic needs [facility] as food, clothing, or medical care? No 08/09/2024 In the past 12 months have y ou been in a relationship with a person who hurts, threatens, or tries to control you? No 08/09/2024 Are you denied basic needs [facility] as food, clothing, or medical care? No [...] file Not on file Not on file Last Filed Vital Signs Vital Sign Reading Time Taken Comments Blood Pressure 115/71 08/09/2024 12:43 PM EDT Pulse 68 08/09/2024 12:43 PM EDT Temperature 36 C (96.8 F) 08/09/2024 12:21 PM EDT Respiratory Rate 20 08/09/2024 12:43 PM EDT Oxygen Saturation 99% 08/09/2024 12:43 PM EDT Inhaled Oxygen Concentration - - Weight 95.3 kg (210 lb) 08/06/2024 1:59 PM EDT Height 162.6 cm (5' 4 ) 05/17/2021 4:07 PM EDT Body Mass Index 36.05 05/17/2021 4:07 PM EDT Plan of Treatment Health Maintenance Due Date Last Done Comments HIV ONE-TIME SCREENING (18-65 YEARS) 2005 PNEUMOCOCCAL VACCINES (0-49 years) (1 of 2 - PCV) 2006 PAP SMEAR 2008 COVID-19 VACCINE (2023- season) 2024 10/28/2021, 02/26/2021, 01/29/2021 DEPRESSION SCREENING 11/10/2024 11/10/2023, 11/10/19 24 INFLUENZA VACCINE (#1) 2025 , 11/03/2023, 10/17/2022, Additional history exists CREATININE LEVEL 07/26/2025 07/26/2024, , 12/07/2020, Additional history exists POTASSIUM LEVEL 07/26/2025 07/26/2024, 03/02/2021, 12/07/2020, Additional history exists SMOKING Hx and SMOKELESS TOBACCO SCREENING 08/09/2025 08/09/2024 SCREENING FOR DIABETES 07/26/2027 07/26/2024 Adult Td,Tdap Booster 08/06/2033 08/06/2023 , 03/05/2014, 03/31/2000 HEPATITIS C SCREENING Completed 03/05/2019 HEPATITIS A VACCINES Aged Out No long er eligible based on patient's age to complete this topic HIB VACCINES Aged Out No longer eligi ble based on patient's age to complete this topic MENINGOCOCCAL VACCINES (ACWY) Aged Out No longer eligible based on patient's age to complete this topic MENINGOCOCCAL VACCINES (B) Aged Out N o longer eligible based on patient's age to complete this topic Medical Devices Not on file Procedures Procedure Name Priority Date/Time Associated Diagnosis Comments COMPREHENSIVE METABOLIC PANEL Routine 07/26/2024 12:28 PM EDT Rectal bleeding Constipation, unspecified constipation type from Last 3 Months or Most Recently Relevant to Health Maintenance Results * Comprehensive metabolic panel (07/26/2024 12:28 PM EDT) SODIUM 139 133 - 146 mmol/L [facility] POTASSIUM 3.8 3.3 - 5.1 mmol/L [facility] CHLORIDE 104 96 - 108 mmol/L [facility] CO2 23 21 - 35 mmol/L [facility] BUN 11 6 - 19 mg/dL [facility] CREATININE 0.70 0.5 - 1.5 mg/dL [facility] GLUCOSE 82 70 - 99 mg/dL [facility] ALBUMIN 4.0 3.9 - 4.8 g/dL [facility] TOTAL PROTEIN 6.9 6.5 - 8.0 g/dL [facility] CALCIUM 9.1 8.4 - 10.3 mg/dL [facility] ALKALINE PHOSPHATASE 76 39 - 117 U/L [facility] TOTAL BILIRUBIN 0.3 0.0 - 1.2 mg/dL [facility] AST 13 0 - 37 U/L [facility] ALT 10 0 - 40 U/L [facility] GLOBULIN 2.9 1 - 4.8 g/dL [facility] EGFR 115 >59 mL/min/1.7 3m2 [facility] Comment:Estimated glomerular filtration rate calculated using the CKD-EPI refit equation. ANION GAP 16 10 - 20 mmol/L [facility] Blood 07/26/2024 12:2 8 PM EDT 07/26/2024 2:51 PM EDT Jordana Bradshaw PA-C LAB BLOOD ORDERABLES Final Resu lt [facility] [address] [place] [address] from Last 3 Months or Most Recently Relevant to Health Maintenance Insurance [address] [place] [address] [facility] [address] [place] [address] [facility] [address] [place] [address] [facility] [address] [place] [address] [employer] [address] [place] [address] [employer] [address] [place] [address] [employer] [address] [place] [address] [place] [address] [place] [address] Advance Directives For more information, please contact: [phone] (9AM - 5PM Myrna/[facility], Monday-Monday) * Full Code (Latest Code Status on File) Date Activated Date Inactivated Comments 11/28/2020 11:32 PM Question Answer Comments Code Status Confirmed With: Patient Care Teams River Driver Relationship Specialty Start Date End Date Ewelina Nettles MD [address] [place] [address] [phone] [email or web address] PCP - General Family Medicine 11/26/20 Florence Ricks, COMPUTER FORENSICS EXAMINER [address] [place] [address] iCMP Social Work 10/24/23 Additional Source Comments The information contained in this document represents components of the legal health record. It is not the complete legal health record.[facility]
--- OUTSIDE RECORDS SUMMARY | 2025-06-05 14:55 | XMS_ITS | Encounter Summary ---
Author Organization [facility] Address [address] [place] [address] Phone Care Team Providers Care Director Of Vital Statistics Name Role Phone Ewelina Nettles MD Primary Care Provider [phone] Veena Wilson RN Unavailable Geovani Fermin MD Unavailable [phone] Ewelina Nettles MD Unavailable [phone] Florence RicksW Unavailable [email or web address] Stepan Reno Unavailable [email or web address] Mai Zuniga Unavailable claudia Veena Wilson RN Unavailable Encounter Details Date Type Department Care Team (Late st Contact Info) Description 11/28/2020 Procedure Pass [facility], [address] [address] Social History Tobacco Use Types Packs/Day Years [...] 11/28/2020 6:29 PM Kerri Irby RN * [place] Suicide Severity Rating Scale (Screener/Recent Self-Report) Question [...] filedocumented in this encounter Care Teams Director Of Vital Statistics Relationship Specialty Start Date End Date Ewelina Nettles MD [address] [place] [phone] [email or web address] PCP - General Family Medicine 11/26/20 Veena Wilson RN [address] [place] [phone] [facility] Flight Attendant Inflight Services 12/09/20 12/15/20 Geovani Fermin MD [address] [place] [phone] Insurance Assigned Provider 12/12/20 01/16/21 Ewelina Nettles MD [address] [place] [phone] Insurance Assigned Provider 01/16/21 06/17/23 Florence Ricks LCSW [address] [place] [phone] [facility] Social Work 10/24/23 Stepan Reno [address] [place] [phone] [email or web address] Worker 02/15/24 05/20/24 Mai Zuniga [address] [place] [address] [email or web address] [facility] Community Fourth Officer 04/05/24 04/05/24 Veena Wilson RN [address] [place] [phone] [email or web address] [facility] Flight Attendant Inflight Services 12/02/24 02/09/25 documented as of this encounter Additional Source Comments The information contained in this document represents components of the legal health record. It is not the complete legal health record.[facility]
--- OUTSIDE RECORDS SUMMARY | 2025-06-05 14:55 | XMS_ITS | Encounter Summary ---
Author Organization [facility] Address [address] [place] [address] Phone Care Team Providers Care Diversified Crops Farmworker Name Role Phone Ewelina Nettles MD Primary Care Provider [phone] Veena Wilson RN Unavailable Geovani Fermin MD Unavailable [phone] Ewelina Nettles MD Unavailable [phone] Florence RicksW Unavailable [email or web address] Stepan Reno Unavailable [email or web address] Mai Zuniga Unavailable claudia Veena Wilson RN Unavailable Encounter Details Date Type Department Care Team (Late st Contact Info) Description 12/04/2020 Procedure Pass [facility], [address] [address] Social History Tobacco Use Types Packs/Day Years [...] on filedocumented in this encounter Care Teams Diversified Crops Farmworker Relationship Specialty Start Date End Date Ewelina Nettles MD [address] [place] [phone] [email or web address] PCP - General Family Medicine 11/26/20 Veena Wilson, RN [address] [place] [phone] [facility] Link Trainer 12/09/20 12/15/20 Geovani Fermin MD [address] [place] [place] [phone] Insurance Assigned Provider 12/12/20 01/16/21 Ewelina Nettles MD [address] [place] [phone] [email or web address] Insurance Assigned Provider 01/16/21 06/17/23 Florence Ricks LCSW [address] [place] [phone] [email or web address] [facility] Social Work 10/24/23 Stepan Reno [address] [place] [phone] [email or web address] [facility] Community Health Worker 02/15/24 05/20/24 Mai Zuniga [address] [place] [address] [email or web address] [facility] Community Bowling Alley Manager 04/05/24 04/05/24 Veena Wilson, ENRIQUE [address] [place] [phone] [facility] Link Trainer 12/02/24 02/09/25 documented as of this encounter Additional Source Comments The information contained in this document represents components of the legal health record. It is not the complete legal health record.[facility]
--- OUTSIDE RECORDS SUMMARY | 2025-06-05 14:55 | XMS_ITS | Encounter Summary ---
Author Organization [facility] Address [address] [place] [address] Phone Care Team Providers Care Molding Manager Name Role Phone Ewelina Nettles MD Primary Care Provider Ewelina Nettles MD Unavailable [phone] Florence RicksW Unavailable [email or web address] Stepan Reno Unavailable [email or web address] Mai Zuniga Unavailable claudia Veena Wilson RN Unavailable Encounter Details Date Type Department Care Team (Late st Contact Info) Description 01/21/2021 Procedure Pass [facility], [address] [address] Social History Tobacco Use Types Packs/Day Years [...] on filedocumented in this encounter Care Teams Molding Manager Relationship Specialty Start Date End Date Ewelina Nettles MD [address] [place] [phone] [email or web address] PCP - General Family Medicine 11/26/20 Ewelina Nettles MD [address] [place] [address] [email or web address] Insurance Assigned Provider 01/16/21 06/17/23 Florence Ricks LCSW [address] [place] [phone] [email or web address] 10/24/23 Stepan Reno [address] [place] [address] [email or web address] Community Health Worker 02/15/24 05/20/24 Mai Zuniga [address] [place] [address] [email or web address] [facility] Community Power Plant Electrician 04/05/24 04/05/24 Veena Wilson, ENRIQUE [address] [place] [phone] [email or web address] [facility] Green Chain Offbearer 12/02/24 02/09/25 documented as of this encounter Additional Source Comments The information contained in this document represents components of the legal health record. It is not the complete legal health record.[facility]
== END 2025-06-05 14:32 | disposition home or self-care (01) ==
LOC: HO.HNS 14:10
PROVIDERS: PCP Family Medicine; Visit Provider Physician Assistant
DX: M46.1 Sacroiliitis, not elsewhere classified (principal)
CPT/HCPCS: 99024

== ENCOUNTER 2025-06-05 14:10 | Outpatient (REF) | payer MEDICAID, SELFPAY | END 2025-06-05 14:11 | disposition home or self-care (01) | LOC: HO.HOSX 14:10 | PROVIDERS: PCP Family Medicine; Visit Provider Physician Assistant | DX: M46.1 Sacroiliitis, not elsewhere classified (principal) | CPT/HCPCS: 99212 ==

== ENCOUNTER 2025-07-17 07:56 | Outpatient (REF) | payer MEDICAID, SELFPAY ==
--- NOTE | ~2025-07-17 | XR_ITS ---
EXAMINATION: XR SACROILIAC JOINTS CLINICAL INFORMATION: M46.1 - Sacroiliitis, not elsewhere classified COMPARISON: None available. TECHNIQUE: 3 views of the sacroiliac joints FINDINGS: There is sclerosis and narrowing of the left SI joint. Right SI joint demonstrates sclerosis inferiorly and small marginal osteophytes. XR/XR sacroiliac joint min 3V IMPRESSION: Mild degenerative changes of the right and moderate degenerative changes of the left SI joints. Electronically signed by: Zain Castro MD 07/17/2025 10:50 AM EDT
== END 2025-07-17 07:57 | disposition home or self-care (01) ==
LOC: HO.HOSX 07:56
PROVIDERS: Visit Provider Physician Assistant
DX: M46.1 Sacroiliitis, not elsewhere classified (principal)
CPT/HCPCS: 72202; 99212

== ENCOUNTER → 2025-07-17 10:39 | Outpatient (BNV) | payer MEDICAID, SELFPAY | PROVIDERS: Visit Provider Radiology Diagnostic Radiology | DX: M16.12 Unilateral primary osteoarthritis, left hip (principal) | CPT/HCPCS: 72202 ==

== ENCOUNTER 2025-07-17 10:46 | Outpatient (AMB) | payer MEDICAID, SELFPAY ==
--- NOTE | 2025-07-17 10:53 | A.SPINEOV_ITS ---
Intake Visit Reasons: 2nd post op with xrays Intake Note: Ms. Grace is here today for her 2nd post op with x-rays. Assistant Teaching Professor Required: No Allergies Latex, Natural Rubber Allergy (Intermediate, Verified 05/13/25 09:10) Rash Seasonal Allergies Allergy (Intermediate, Verified 05/13/25 09:34) chest congestion Assessment & Plan Assessment & Plan (1) Sacroiliitis, not elsewhere classified: Code(s): M46.1 - Sacroiliitis, not elsewhere classified Category: Medical Plan Procedure: Left SI joint fusion Maddy is a pleasant 39-year-old female who comes in today for her 2nd postoperative appointment after having a left-sided SI joint fusion completed by Dr. Stevens. She reports continued good improvement since her surgery. She recounted a history of 2 years of 8/10 pain, which has resolved down to a transient 2/10 pain on a daily basis. She is very satisfied overall with the surgery, and express gratitude for the reduction in her current pain level. She will obtain x-ray imaging of the left SI joint during this visit today, which shows stable placement of her trans-fasten implant. We discussed the postoperative healing course and I answered any questions that she had. No new neurological deficits. The patient ambulates well and rises from a seated position without difficulty. Her posterior incision site is closed and well healed. There is no need for continued routine follow up, she may follow up on an as- needed basis in the future. Ko Stevens MD,PhD [facility] Orders: Orders XR sacroiliac joint min 3V Today M46.1 - Sacroiliitis, not elsewhere classified Coding Level of Care Code Global (97865) Diagnoses Sacroiliitis, not elsewhere classified M46.1
== END 2025-07-17 11:08 | disposition home or self-care (01) ==
LOC: HO.HNS 10:47
PROVIDERS: PCP Family Medicine; Visit Provider Physician Assistant
DX: M46.1 Sacroiliitis, not elsewhere classified (principal)
CPT/HCPCS: 99024